=== PATIENT | male | born 1975 | race Caucasian/White ===

== ENCOUNTER 2018-04-10 16:07 | Emergency (ER) | payer SELFPAY ==
[~2018-04-10] VITALS: Ht 182.9 cm; Wt 93.2 kg
[2018-04-10 16:24] VITALS: Ht 182.9 cm; Wt 93.2 kg
[2018-04-10] MEDS ORDERED: EC-NAPROSYN500 MG PO (17:09)
[2018-04-10 17:27] VITALS: BP 144/106
== END 2018-04-10 17:28 | disposition home or self-care (01) ==
LOC: D.ER 16:07
DX: S93.601A Unspecified sprain of right foot, initial encounter (principal); X58.XXXA Exposure to other specified factors, initial encounter; Y93.89 Activity, other specified; Y92.019 Unspecified place in single-family (private) house as the place of occurrence of the external cause; I10 Essential (primary) hypertension; F17.200 Nicotine dependence, unspecified, uncomplicated

== ENCOUNTER 2021-01-05 19:37 | Inpatient (IN) | payer BC ==
[~2021-01-05] VITALS: Ht 182.9 cm; Wt 86.4 kg
[~2021-01-05 19:37] MED LIST: EC-NAPROSYN500 MG PO
[2021-01-05 19:44] VITALS: Ht 182.9 cm; Wt 86.4 kg
[2021-01-05 20:42] LABS: BASOPHILS 0.3 % (0-2); EOSINOPHILS 6.1 % (0-7); HEMATOCRIT 43.4 % (42.0-54.0); HEMOGLOBIN 14.9 g/dL (13.5-17.5); IMMATURE GRANULOCYTES 0.5 % (0-5); LYMPHOCYTE ABS# 1.46 10x3/uL (1.32-3.57); LYMPHOCYTES 24.7 % (15-50); MCH 29.7 pg (26.0-34.0); MCHC 34.3 g/dL (31.0-37.0); MCV 86.6 fL (80.0-100.0); MEAN PLATELET VOLUME 10.2 fL (7.4-10.4); MONOCYTES 7.5 % (2-11); NEUTROPHIL ABS# 3.59 10x3/uL (1.78-5.38); NEUTROPHILS 60.9 % (40-80); PLATELET COUNT 315 10x3/uL (130-400); RBC 5.01 10x6/uL (4.20-6.10); RDW 13.7 % (11.5-14.5); WBC 5.9 10x3/uL (4.8-10.8)
[2021-01-05 20:45] VITALS: BP 101/64
[2021-01-05 20:57] LABS: ANION GAP 18.4 mmol/L (8-16); CARBON DIOXIDE 20.4 mmol/L (21.0-32.0); CREATININE - SERUM 2.2 mg/dL (0.6-1.3); POTASSIUM - SERUM 3.8 mmol/L (3.5-5.1)
[2021-01-05 21:03] LABS: ALBUMIN 3.4 g/dL (3.4-5.0); BILIRUBIN - TOTAL 0.52 mg/dL (0.2-1.3); MAGNESIUM - SERUM 2.3 mg/dL (1.8-2.4); PROTEIN - SERUM 7.9 g/dL (6.4-8.2)
[2021-01-05 21:45] VITALS: BP 100/69
[2021-01-05 22:18] LABS: BILIRUBIN NEGATIVE (NEGATIVE); KETONE NEGATIVE (NEGATIVE); NITRITE NEGATIVE (NEGATIVE); UROBILINOGEN NORMAL mg/dL (< 2)
[2021-01-05 22:27] LABS: UDS - AMPHET POSITIVE QUAL (NEGATIVE); UDS - BARB NEGATIVE QUAL (NEGATIVE); UDS - BENZO NEGATIVE QUAL (NEGATIVE); UDS - COCAINE POSITIVE QUAL (NEGATIVE); UDS - OPIATE NEGATIVE QUAL (NEGATIVE); UDS - PCP NEGATIVE QUAL (NEGATIVE); UDS - THC NEGATIVE QUAL (NEGATIVE)
[2021-01-05 22:37] VITALS: BP 104/70
[2021-01-05 23:34] VITALS: BP 101/76
[2021-01-06] VITALS (7 sets, daily range): BP systolic 94–123; BP diastolic 41–79
[2021-01-06 01:05] LABS: CKMB 14.3 U/L (0.0-3.6); CREATINE KINASE 520 UL (21-232)
[2021-01-06 01:12] LABS: TROPONIN-I 0.159 ng/mL (0.000-0.060)
--- NOTE | 2021-01-06 02:32 | NUR ---
PT PULLED IV OUT, TRIED TO START IV TWICE, CHARGE NURSE WENT IN TO TRY AND PT REFUSED IV
--- NOTE | 2021-01-06 07:00 | NUR ---
REPORT RECEIVED FROM NAWAF EVANS. STATES NO IV IN PLACE AT THIS TIME. PATIENT PULLED LAST ONE OUT AND RN UNABLE TO SITE A NEW ONE X 2 ATTEMPTS.
[2021-01-06 07:16] LABS: BASOPHILS 0.5 % (0-2); EOSINOPHILS 2.7 % (0-7); HEMATOCRIT 42.5 % (42.0-54.0); HEMOGLOBIN 14.1 g/dL (13.5-17.5); IMMATURE GRANULOCYTES 0.2 % (0-5); LYMPHOCYTE ABS# 1.96 10x3/uL (1.32-3.57); LYMPHOCYTES 21.1 % (15-50); MCH 29.4 pg (26.0-34.0); MCHC 33.2 g/dL (31.0-37.0); MEAN PLATELET VOLUME 9.7 fL (7.4-10.4); MONOCYTES 11.1 % (2-11); NEUTROPHIL ABS# 5.99 10x3/uL (1.78-5.38); NEUTROPHILS 64.4 % (40-80); PLATELET COUNT 303 10x3/uL (130-400); RBC 4.79 10x6/uL (4.20-6.10); RDW 13.9 % (11.5-14.5)
[2021-01-06 07:18] LABS: MCV 88.7 fL (80.0-100.0); WBC 9.3 10x3/uL (4.8-10.8)
--- NOTE | 2021-01-06 07:21 | NUR ---
PATIENT IS LYING ON RIGHT SIDE, SLEEPING. BP CUFF OFF HIS ARM. WILL DEFER BP CHECK UNTIL PATIENT IS AWAKE TO AVOID AGITATIONI. HR/RR/SPO2 WNL. REGIONAL ECONOMIST SHOWS SINUS RHYTHM.
[2021-01-06 07:51] LABS: ALBUMIN 3.1 g/dL (3.4-5.0); ANION GAP 15.2 mmol/L (8-16); BILIRUBIN - TOTAL 0.7 mg/dL (0.2-1.3); CALCIUM 8.8 mg/dL (8.5-10.1); CARBON DIOXIDE 21.9 mmol/L (21.0-32.0); CREATININE - SERUM 1.8 mg/dL (0.6-1.3); MAGNESIUM - SERUM 2.2 mg/dL (1.8-2.4); PHOSPHOROUS 3.9 mg/dL (2.5-4.9); POTASSIUM - SERUM 4.1 mmol/L (3.5-5.1); PROTEIN - SERUM 6.9 g/dL (6.4-8.2)
[2021-01-06 08:12] LABS: CKMB 14.4 U/L (0.0-3.6)
[2021-01-06 08:16] LABS: TROPONIN-I 0.093 ng/mL (0.000-0.060)
--- NOTE | 2021-01-06 08:26 | NUR ---
DR. GARCIA HERE TO SEE PT.
--- NOTE | 2021-01-06 09:22 | NUR ---
AWAKENED PATIENT TO DISCUSS IV PLACEMENT FOR MEDICATIONS. PATIENT REFUSED SAYING "NO MORE IVS...NO MORE". PULLED OFF BP CUFF AND PULSE OX, STATES "I'M GETTING OUT OF HERE". TOLD PATIENT HE DIDN'T HAVE SHIRT OR SHOES. ASKED HIM TO WAIT TO SEE MD. OFFERED BREAKFAST. COLA GIVEN PER REQUEST.
--- NOTE | 2021-01-06 09:30 | NUR ---
DR. DAVIDSON HERE. REPORT ON PATIENT GIVEN. DR. DAVIDSON TO SPEAK TO PATIENT.
--- NOTE | 2021-01-06 10:00 | NUR ---
REGULAR DIET BREAKFAST TRAY GIVEN. PATIENT QUESTIONED ABOUT DISCUSSION WITH DR. LEONE. PATIENT STATES "HE WANTS TO KEEP ME ONE MORE NIGHT". DISCUSSED RENAL FAILURE WITH PATIENT. ENCOURAGED ORAL FLUIDS. CONTINUES TO REFUSE IV.
--- NOTE | 2021-01-06 12:55 | NUR ---
DR. GARCIA HERE. THIS NURSE QUESTIONED IF THE PATIENT COULD BE DOWNGRADED TO AN INPATIENT ADMIT INSTEAD OF ICU. DR. GARCIA STATED PATIENT COULD BE DISCHARGED IF NO LONGER SEDATED. DISCHARGE ORDER ENTERED BY DR. GARCIA.
[2021-01-06 13:48] LABS: CREATINE KINASE 360 UL (21-232); TROPONIN-I 0.044 ng/mL (0.000-0.060)
== END 2021-01-06 17:00 | disposition home or self-care (01) | DRG 896 ==
LOC: D.ER 19:37 → D.EDHOLD 22:43
PROVIDERS: Emergency Medicine; ADMIT Emergency Medicine; ATTEND Emergency Medicine
DX: F15.10 Other stimulant abuse, uncomplicated (principal); J96.01 Acute respiratory failure with hypoxia; I21.4 Non-ST elevation (NSTEMI) myocardial infarction; G93.41 Metabolic encephalopathy; N17.9 Acute kidney failure, unspecified; L02.414 Cutaneous abscess of left upper limb; F14.10 Cocaine abuse, uncomplicated; I95.9 Hypotension, unspecified; I10 Essential (primary) hypertension; E78.5 Hyperlipidemia, unspecified; F17.200 Nicotine dependence, unspecified, uncomplicated